=== PATIENT | male | born 1970 | race Caucasian/White ===

== ENCOUNTER 2016-12-15 17:12 | Outpatient (CLI) ==
[2015-07-21 17:27] VITALS: BMI 29.1
[2016-12-15 17:22] LABS: BILIRUBIN,URINE Negative (NEGATIVE); KETONES,URINE Negative (NEGATIVE); LEUKOCYTE ESTERASE ,URINE Negative (NEGATIVE); NITRITE,URINE Negative (NEGATIVE); PH,URINE 6.5 (5-9); PROTEIN,URINE Negative (NEGATIVE); URINE, BLOOD Negative (NEGATIVE)
[2016-12-15 17:25] LABS: BASOPHILS % (AUTO) 0.1 % (0.0-3.0); HEMOGLOBIN 14.7 g/dl (14.0-18.0); IMMATURE GRANULOCYTE % (AUTO) 0.7 % (0.0-5.0); LYMPHOCYTES % (AUTO) 5.8 (10.0-50.0); MEAN CORPUSCULAR HEMOGLOBIN 29.9 pg (27.0-31.0); MEAN CORPUSCULAR VOLUME 85.5 fl (80.0-94.0); MONOCYTES # (AUTO) 0.9 K/uL (0.4-2.0); MONOCYTES % (AUTO) 5.3 (0-10); NEUTROPHILS # (AUTO) 14.7 K/ul (2.0-6.9); NEUTROPHILS % (AUTO) 88.1; PLATELET COUNT 304 10^3/uL (140-440); RED BLOOD COUNT 4.91 10^6/ul (4.70-6.10); WHITE BLOOD COUNT 16.66 K/ul (4.2-10.2)
[2016-12-15 18:03] LABS: ALBUMIN/GLOBULIN RATIO 1.14; ANION GAP 14.3; BILIRUBIN,TOTAL 0.38 mg/dL (0.00-1.20); BUN/CREATININE RATIO 25.28; CALCIUM 9.3 mg/dL (8.2-10.2); CHOL/HDL RATIO 4.5 (4.5-6.4); CREATININE 0.87 mg/dL (0.60-1.10); POTASSIUM 4.3 mmol/L (3.5-5.1); TOTAL PROTEIN 7.5 g/dL (6.4-8.2)
[2016-12-15 18:58] LABS: ADD URINE MICROSCOPIC NO
== END 2016-12-15 17:13 | disposition home or self-care (01) ==
LOC: LAB 17:12
PROVIDERS: ATTEND General Practice
DX: E88.81 Metabolic syndrome and other insulin resistance (principal); R53.83 Other fatigue; R68.82 Decreased libido; E66.9 Obesity, unspecified; Z79.899 Other long term (current) drug therapy
CPT/HCPCS: 36415; 80053; 80061; 81001; 83036; 84402; 84443; 85025

== ENCOUNTER 2017-01-26 14:22 | Outpatient (CLI) ==
[2015-07-21 17:27] VITALS: BMI 29.1
[2017-01-27 07:30] LABS: TESTOSTERONE 485 ng/dL (348-1197)
[2017-01-31 07:44] LABS: FREE TESTOSTERONE 5.8 pg/mL (6.8-21.5)
== END 2017-01-26 14:23 | disposition home or self-care (01) ==
LOC: LAB 14:22
PROVIDERS: ATTEND General Practice
DX: F52.0 Hypoactive sexual desire disorder (principal); R53.83 Other fatigue
CPT/HCPCS: 36415; 84402; 84403

== ENCOUNTER 2017-03-02 16:29 | Outpatient (CLI) ==
[2015-07-21 17:27] VITALS: BMI 29.1
[2017-03-04 10:28] LABS: % FREE PROSTATE SPECIFIC AG 41.7 % (.); PROSTATE SPECIFIC AG, FREE 0.25 ng/mL
== END 2017-03-02 16:30 | disposition home or self-care (01) ==
LOC: LAB 16:29
PROVIDERS: ATTEND General Practice
DX: N40.0 Benign prostatic hyperplasia without lower urinary tract symptoms (principal)
CPT/HCPCS: 36415; 84154

== ENCOUNTER 2017-04-04 16:24 | Outpatient (CLI) ==
[2015-07-21 17:27] VITALS: BMI 29.1
[2017-04-06 07:43] LABS: TESTOSTERONE 1204 ng/dL (348-1197)
== END 2017-04-04 16:25 | disposition home or self-care (01) ==
LOC: LAB 16:24
PROVIDERS: ATTEND General Practice
DX: F52.0 Hypoactive sexual desire disorder (principal)
CPT/HCPCS: 36415; 84403

== ENCOUNTER 2017-04-18 11:08 | Outpatient (CLI) ==
[2015-07-21 17:27] VITALS: BMI 29.1
[2017-04-19 10:04] LABS: TESTOSTERONE 251 ng/dL (348-1197)
== END 2017-04-18 11:09 | disposition home or self-care (01) ==
LOC: LAB 11:08
PROVIDERS: ATTEND General Practice
DX: F52.0 Hypoactive sexual desire disorder (principal)
CPT/HCPCS: 36415; 84403

== ENCOUNTER 2017-05-03 16:56 | Outpatient (CLI) ==
[2015-07-21 17:27] VITALS: BMI 29.1
[2017-05-05 10:44] LABS: TESTOSTERONE 338 ng/dL (264-916)
== END 2017-05-03 16:57 | disposition home or self-care (01) ==
LOC: LAB 16:56
PROVIDERS: ATTEND General Practice
DX: F52.0 Hypoactive sexual desire disorder (principal)
CPT/HCPCS: 36415; 84403

== ENCOUNTER 2017-08-09 08:18 | Outpatient (CLI) ==
[2015-07-21 17:27] VITALS: BMI 29.1
[2017-08-10 06:12] LABS: TESTOSTERONE 542 ng/dL (264-916)
== END 2017-08-09 08:19 | disposition home or self-care (01) ==
LOC: LAB 08:18
PROVIDERS: ATTEND General Practice
DX: F52.0 Hypoactive sexual desire disorder (principal)
CPT/HCPCS: 36415; 84403

== ENCOUNTER 2017-10-04 12:49 | Outpatient (CLI) ==
[2015-07-21 17:27] VITALS: BMI 29.1
[2017-10-05 06:15] LABS: TESTOSTERONE 573 ng/dL (264-916)
== END 2017-10-04 12:50 | disposition home or self-care (01) ==
LOC: LAB 12:49
PROVIDERS: ATTEND General Practice
DX: Z51.81 Encounter for therapeutic drug level monitoring (principal); F52.0 Hypoactive sexual desire disorder; Z79.899 Other long term (current) drug therapy; Z12.5 Encounter for screening for malignant neoplasm of prostate
CPT/HCPCS: 36415; 84403

== ENCOUNTER 2018-01-18 11:49 | Outpatient (CLI) ==
[2015-07-21 17:27] VITALS: BMI 29.1
== END 2018-01-18 11:50 | disposition home or self-care (01) ==
LOC: FCC-LAB 11:49
PROVIDERS: ATTEND General Practice
DX: F52.0 Hypoactive sexual desire disorder (principal); G47.00 Insomnia, unspecified; Z79.899 Other long term (current) drug therapy
CPT/HCPCS: 36415; 80053; 80061; 81001; 84403; 85025

== ENCOUNTER 2018-12-13 11:30 | Outpatient (CLI) ==
[2015-07-21 17:27] VITALS: BMI 29.1
--- NOTE | 2018-12-13 11:56 | DI ---
Exam: Three views of the left shoulder. Comparison: None available. Reason for exam: Pain in left shoulder. FINDINGS: No acute fracture or malalignment. The humeral head articulates to the bony glenoid. The scapular Y-view is unremarkable. The clavicle is intact. Impression: No acute fracture or malalignment is seen in the left shoulder.
== END 2018-12-13 11:31 | disposition home or self-care (01) ==
LOC: RAD 11:30
PROVIDERS: ATTEND General Practice
DX: M25.512 Pain in left shoulder (principal)

== ENCOUNTER 2018-12-13 12:38 | Outpatient (CLI) ==
[2015-07-21 17:27] VITALS: BMI 29.1
== END 2018-12-13 12:39 | disposition home or self-care (01) ==
LOC: RHC-LAB 12:38
PROVIDERS: ATTEND General Practice
DX: M25.512 Pain in left shoulder (principal); E66.9 Obesity, unspecified
CPT/HCPCS: 36415; 80053; 80061; 81001; 82550; 82553; 84403; 84484; 85025; 85651; 86140

== ENCOUNTER 2018-12-18 16:14 | Outpatient (CLI) ==
[2015-07-21 17:27] VITALS: BMI 29.1
== END 2018-12-18 16:15 | disposition home or self-care (01) ==
LOC: RHC-LAB 16:14
PROVIDERS: ATTEND General Practice
DX: Z12.5 Encounter for screening for malignant neoplasm of prostate (principal)
CPT/HCPCS: 36415

== ENCOUNTER 2019-01-19 13:17 | Outpatient (CLI) ==
[2015-07-21 17:27] VITALS: BMI 29.1
== END 2019-01-19 13:18 | disposition home or self-care (01) ==
LOC: RHC-LAB 13:17
PROVIDERS: ATTEND General Practice
DX: M75.22 Bicipital tendinitis, left shoulder (principal)
CPT/HCPCS: 36415; 80053; 80061; 81001; 84403; 85025

== ENCOUNTER 2019-08-06 14:02 | Inpatient (IN) ==
[2019-08-06 12:44] VITALS: BMI 29.2
--- NOTE | 2019-08-06 13:40 | DI ---
EXAM: Two views of the chest. History: Short of breath Comparison: Chest radiograph 05/21/2014 Findings: Heart size is normal. No focal consolidation. No appreciable pleural fluid and no pneumo thorax. No acute osseous abnormalities. Impression: No acute cardiopulmonary process
[~2019-08-06 14:02] MED LIST: ATROPINE SULFATE PFS IVP PRN; DEXTROSE 5%-1/2NS IV SOLUTION 1,000 ML IV SCH; NITROSTAT SL PRN; TYLENOL PO PRN; VISTARIL INJ IM PRN
[2019-08-06] MEDS: CARAFATE PO SCH ×3 (15:16→20:15)
[2019-08-06] MEDS: PROTONIX PO SCH ×2 (15:16→19:43)
[2019-08-06] MEDS ORDERED: ULTRAM PO PRN (15:21)
[2019-08-06] MEDS: LEVAQUIN 500 MG/100 ML D5W 500 MG/100 ML BAG IV SCH (20:17)
[2019-08-06] MEDS ORDERED: MELATONIN PYRIDOXINE HCL PO SCH (21:00)
[2019-08-07] MEDS: CARAFATE PO SCH ×4 (05:30→21:06)
[2019-08-07] MEDS: PROTONIX PO SCH ×2 (05:30→16:51)
[2019-08-07] MEDS ORDERED: ASPIRIN EC PO SCH (08:00)
--- NOTE | 2019-08-07 08:43 | PCM.PROG ---
Attending Provider: ATTENDING PROVIDER: Dr. REX WILLIAMSON This patient is seen with Riddhi Garcia, Nurse Practitioner. DATE OF SERVICE: 08/07/19 SUBJECTIVE: This 49 year old /WHITE M was hospitalized 08/06/19. The patient is lying in bed resting comfortably. He had 4 units of PRBC's. Pallor improved. Today no shortness of breath at rest. The patient admits to taking Goody's powder up to 3 times daily with occasional Duexis. In the past, he has had abdominal pain off and on with self-medication of Pepto-Bismol. Also, has history of heavy nosebleeds over the past couple of weeks. REVIEW OF SYSTEMS: CONSTITUTIONAL: Weakness. No night sweats. No malaise, lethargy. No fever or chills. Pallor positive. HEENT: Eyes: No visual changes. No eye pain. No eye discharge. ENT: No runny nose. No epistaxis. No sinus pain. No odynophagia. No congestion. RESPIRATORY: No cough, no congestion. No hemoptysis. Positive for shortness of breath. CARDIOVASCULAR: No angina symptoms. No CHF symptoms. No atypical chest pain for CAD. No palpitations. No orthopnea.. GASTROINTESTINAL: No abdominal pain. No nausea or vomiting. No diarrhea or constipation. No hematemesis. No hematochezia. GENITOURINARY: No urgency. No frequency. No dysuria. No hematuria. No obstructive symptoms. No discharge. No pain. No significant abnormal bleeding. MUSCULOSKELETAL: No musculoskeletal pain; no joint swelling. NEUROLOGICAL: Awake, alert, oriented to time, place and person. No headache. No neck pain. No syncope. No seizures. No dizziness. PSYCHIATRIC: Not anxious. No depression. No suicidal thoughts. No homicidal thoughts. SKIN: No rash. No lesions. No wounds. ENDOCRINE: No unexplained weight loss. No weight gain. HEMATOLOGIC/LYMPHATIC: No anemia. No purpura. No petechiae. No prolonged or excessive bleeding. No palpable lymph nodes. PHYSICAL EXAMINATION: GENERAL: The patient is awake, alert and oriented, lying/sitting in bed in no distress. Pallor improved. VITAL SIGNS: Temperature 98.2 F, Pulse 68, Respiratory Rate 18, BP 124/63, Pulse Ox 99% HEENT: Head normocephalic, atraumatic. Eyes: Extraocular muscles are intact. Pupils are equal, round and reactive to light and accommodation. Ears: No lesions. Nose appeared normal. Throat: No exudate or erythema. NECK: Supple. No JVD, no carotid bruit. No lymphadenopathy or thyromegaly. LUNGS: Clear to auscultation. Percussion note normal. Chest symmetrical. HEART: S1, S2, no S3. No murmurs. No cyanosis or clubbing. No ascites. Pulses: Dorsalis pedis and posterior tibial pulses +1 to +2 both sides. ABDOMEN: Soft. Non-tender. Bowel sounds active. No CVA tenderness. No mass f elt. EXTREMITIES: No edema. Full range of motion of all extremities, equal. NEUROLOGIC: No focal deficit. Cranial nerves II through XII are grossly intact. No headache, no double vision or headache. SKIN: Not dry. Intact. Turgor-normal. LYMPHATIC: No palpable lymph nodes/no lymphedema. MUSCULOSKELETAL: Normal joints with no swelling. Muscle tone is normal. LAB REVIEW: 08/07/19 05:28 08/07/19 05:28 08/07/19 05:28: Sodium 136.2, Potassium 4.72, Chloride 102.8, Carbon Dioxide 29 .5, Anion Gap 8.62, BUN 19.9, Creatinine 1.02, Estimated GFR (MDRD) 78.00, BUN/Creatinine Ratio 19.50, Glucose 92.8, Calcium 8.16 L, Total Bilirubin 0.61, AST 43.4, ALT 30.7, Alkaline Phosphatase 55.8, Total Protein 6.36, Albumin 3.48 L, Globulin 2.88, Albumin/Globulin Ratio 1.20 08/07/19 05:28: WBC 9.59, RBC 3.20 L, Hgb 8.0 L, Hct 25.6 L, MCV 80.0, MCH 25.0 L, MCHC 31.3 L, RDW Coeff of Karina 16.4 H, Plt Count 460 H, Immature Gran % (Auto) 1.4, Neut % (Auto) 60.9, Lymph % (Auto) 22.1, [place] % (Auto) 11.6 H, Eos % (Auto) 3.0, Baso % (Auto) 1.0, Immature Gran # (Auto) 0.1, Neut # (Auto) 5.8, Lymph # (Auto) 2.1, [place] # (Auto) 1.1, Eos # (Auto) 0.3, Baso # (Auto) 0.1 08/06/19 21:40: Hgb 6.1 L, Hct 20.3 L 08/06/19 20:44: Total Creatine Kinase 67.1, Troponin I < 0.012 08/06/19 13:32: Reticulocyte % (Auto) 3.59, Absolute Retic 0.0732, Retic Hgb Equ ivalent 16.3 08/06/19 13:32: Hgb 4.4 L*, Hct 15.6 L* 08/06/19 13:32: Blood Type O POSITIVE, Antibody Screen Negative, Crossmatch (AHG) See Detail 08/06/19 13:30: Urine Color Yellow, Urine Clarity Clear, Urine pH 6.0, Ur Speci fic [place] 1.020, Urine Protein Negative, Urine Glucose (UA) Negative, Urine Ketones Negative, Urine Blood Negative, Urine Nitrite Negative, Urine Bilirubin Negative, Urine Urobilinogen 0.2, Ur Leukocyte Esterase Negative 08/06/19 12:37: Transferrin 519 H 08/06/19 12:37: Iron 19.4 L, TIBC 475, % Saturation 4, Vitamin B12 858 08/06/19 12:37: Ferritin 5.42 L, Folate 12.00 08/06/19 12:37: Blood Type O POSITIVE 08/06/19 12:37: Sodium 137.2, Potassium 4.03, Chloride 100.4, Carbon Dioxide 27.3, Anion Gap 13.53, BUN 23.7 H, Creatinine 1.09, Estimated GFR (MDRD) 72.00, BUN/Creatinine Ratio 21.74, Glucose 115.5 H, Calcium 8.46, Total Bilirubin 0.17 L, AST 43.6, ALT 28.5, Alkaline Phosphatase 54.9, Total Creatine Kinase 86.0, Troponin I < 0.012, Total Protein 6.64, Albumin 3.69, Globulin 2.95, Albumin/Globulin Ratio 1.25, TSH 1.260 08/06/19 12:37: WBC 8.31, RBC 1.95 L, Hgb 4.2 L*, Hct 15.0 L*, MCV 76.9 L, MCH 21.5 L, MCHC 28.0 L, RDW Coeff of Kairna 17.9 H, Plt Count 490 H, Immature Gran % (Auto) 0.5, Neut % (Auto) 73.7, Lymph % (Auto) 15.8, [place] % (Auto) 7.9, Eos % (Auto) 1.6, Baso % (Auto) 0.5, Immature Gran # (Auto) 0.0, Neut # (Auto) 6.1, Lymph # (Auto) 1.3, [place] # (Auto) 0.7, Eos # (Auto) 0.1, Baso # (Auto) 0.0, Hypochromasia 1+, Anisocytosis Not present, Microcytosis 1+ 08/06/19 12:37: ESR 44 H ASSESSMENT: Please see below. 1. Anemia likely peptic ulcer disease secondary to NSAID use. 2. Shortness of breath. PLAN: 1. Xanax 0.25 mg p.o. b.i.d. p.r.n. 2. Continue Protonix and Carafate. 3. Iron 325 mg p.o. b.i.d. 4. CT scan of abdomen and pelvis with and without this afternoon. Plan and coordination of the patient's care discussed in the presence of Rail Car Painter/Sandblaster and nurse. CONDITION: Stable SCRIBED BY: Jose Alfredo YOU scribed while in presence of service performed by Dr. Williamson/Riddhi Garcia APRN on 08/07/19 ([id number])
[2019-08-07] MEDS: LEVAQUIN 500 MG/100 ML D5W 500 MG/100 ML BAG IV SCH (09:05)
[2019-08-07] MEDS: FERROUS SULFATE PO SCH ×2 (09:05→21:06)
[2019-08-07] MEDS: XANAX PO PRN ×2 (09:05→21:06)
--- NOTE | 2019-08-07 13:13 | CT ---
EXAM: CT of the abdomen pelvis with and without contrast History: Anemia. Weakness and abdominal pain Comparison: CT abdomen pelvis 07/24/2015 Technique: Multiplanar CT images through the abdomen pelvis were obtained with and without the admin istration of IV contrast Findings: Lung bases are free of consolidation. Calcified granulomas are seen within the thorax. N o acute osseous abnormalities. No renal stones and no hydronephrosis. No ureteral calculi. No gallstones identified by CT. No clinton er or splenic lesions. No abdominal aortic aneurysm. Pancreas is within normal limits. Adrenal gla nds are normal. There are no renal masses. The appendix is not dilated or inflamed. No free air an d no ascites. No bladder wall thickening. Prostate is not enlarged. No perirectal inflammation. C olonic diverticulosis. No pathologically enlarged lymph nodes. No inflammatory stranding. Impression: 1. No acute intra-abdominal or pelvic process. 2. No malignant findings. 3. Colonic diverticulosis
[2019-08-07] MEDS ORDERED: MELATONIN PYRIDOXINE HCL PO SCH (21:00)
[2019-08-08] MEDS: CARAFATE PO SCH ×2 (05:33→12:03)
[2019-08-08] MEDS: PROTONIX PO SCH (05:34)
[2019-08-08 05:40] VITALS: BP 123/62; TEMP 98.1
[2019-08-08] MEDS: FERROUS SULFATE PO SCH (08:38)
[2019-08-08] MEDS: LEVAQUIN 500 MG/100 ML D5W 500 MG/100 ML BAG IV SCH (08:38)
--- NOTE | 2019-08-08 11:58 | HP ---
DATE OF SERVICE: 08/06/19 HISTORY OF PRESENT ILLNESS: This 49-year-old White/ male presented with complaint of vomiting on Tuesday. He started Levaquin on . He thought he had decreased output with slight burning. He has palpitations with chest tightness off and on times 6 days. He has mild dizziness. He is short of breath on minimal exertion. He complains of fatigue. PAST MEDICAL HISTORY: Hypogonadism PAST SURGICAL HISTORY: Right elbow surgery 1974 Umbilical hernia 2006 REVIEW OF SYSTEMS: CONSTITUTIONAL: Fever and fatigue. HEENT: No sinus drainage, no sore throat. RESPIRATORY: No cough, no congestion. CARDIOVASCULAR: Positive for shortness of breath. Atypical chest pain for coronary artery disease. No angina, CHF symptoms or palpitations. GASTROINTESTINAL: No melena or abdominal pain. No GERD. GENITOURINARY: No hematuria, no prostatism, no polyuria. GASOLINE FINISHER: Dizziness with change in position. No blackout, no headache, no double vision. MUSCULOSKELETAL: No osteoarthritis pain, no joint swelling. ENDOCRINE: No weight loss, no weight gain. SKIN: Not dry, no rash. PSYCHIATRIC: The patient is anxious. No depression, no suicidal thoughts, no homicidal thoughts. SOCIAL HISTORY: Smoking history - one-half pack per day for 10 years, quit in 1991, 26 years ago. . . Alcohol - Occasionally twice a year. Two children. Occupation - [employer] [place], [place]. FAMILY HISTORY: Father is . Mother is living. Five brothers. One sister. MEDICATIONS: Goody's powder p.r.n. Duexis 800 mg daily Melatonin one each p.o. bedtime 03/08/19 Phentermine 37.5 mg 04/23/19 Z-pack 250, Valium 2 mg b.i.d p.r.n. (dizzy) Antivert 25 mg t.i.d. p.r.n. Levaquin 500 mg daily Melatonin 10 mg three at h.s. ALLERGIES: NKDA (Will never take narcotics) PHYSICAL EXAMINATION: V/S: Pulse 94, BP 152/80, temperature 99.5, 02 sat 100%. Weight 200.6 lbs, height 5'9". GENERAL APPEARANCE: Oriented times three. HEENT: Normal. NECK: No JVP, no bruits. RESPIRATORY: Lungs are clear. CARDIOVASCULAR: S1, S2, no S3, no murmur. No cyanosis, clubbing. No ascites. GI/ABDOMEN: No tenderness. Bowel sounds are active. EXTREMITIES: edema, pulses +1, equal. GASOLINE FINISHER: Deep tendon reflexes, sensory, motor and gait all normal. RECTAL/PROSTATE: Advised now within a year colonoscopy and patient stated he will think about it. ASSESSMENT: 1. FEVER/PROSTATITIS ??/VIRAL 2. SHORTNESS OF BREATH/CHEST TIGHTNESS 3. PALPITATIONS 4. DIZZINESS 5. LEFT KNEE OSTEOARTHRITIS 6. HYPOGONADISM 7. BMI 29.6 8. LEFT BICEP TENDONITIS The patient was unable to work from the past and was going to be off the rest of the week. PLAN: 1. Admit observation. 2. Routine telemetry orders. 3. IV Levaquin 500 mg today and q.a.m. 4. UA with C & S 5. TSH/Sed rate 6. Echocardiogram 7. Stress Echo 8. Regular diet 9. 1000 cc D5 1/2 NS 12 hourly 10. Admit EDUCATION CARRIED OUT ABOUT: Diabetes mellitus and its complications, hypertension and its complications, CAD and its risk factors. Advised yearly ophthalmology examinations. Advised colonoscopy within one year. TIME SPENT: More than 70 minutes. MTDD
--- NOTE | 2019-08-08 13:42 | DS ---
DATE OF SERVICE: 08/08/19 FINAL DIAGNOSIS: 1. Severe anemia, Microcytic hyperchromic blood less from nonsteroidal anti- inflammatory 2. Labile hypertension 3. LVH by Echo 4. BMI 29. 5. Hypogonadism with history of low testosterone level DISCHARGE INSTRUCTIONS: Discharge home. Strongly advised to discontinue any Nonsteroidal anti- inflammatory likely Goody's and Duexis. The patient is to be seen on Tuesday for followup in the office. The patient is to see machine assembler supervisor, Dr. Kelly and Checker Loader Dr. Sandhu for evaluation of Microcytic hyperchromic anemia with hgb of 4.4 with hct 16 on admission. MEDICATIONS AT DISCHARGE: Ferrous sulfate 325 PO twice a day Carafate 1 gram QID for 10 days after that will discontinue that Protonix 40mg BID for 10 days after one daily DISCONTINUED MEDICATIONS: DO NOT TAKE GOODY'S POWDER DO NOT TAKE DUEXIS DIET INSTRUCTIONS: Regular as tolerated ACTIVITY: Resume as tolerated SMOKING: Former smoker DISEASE SPECIFIC EDUCATION: Severe Anemia Appointments Medications NSAIDS HOSPITAL COURSE: Juan Garcia was hospitalized through the office with complaint of being short of breath with minimal exertion with chest tightness and palpitation. Further workup revealed that patient had severe anemia with hgb of 4.4. The patient was given 2-3 units of packed red cells. The patient at the time of discharge had hgb of 8.6 with hct 27. His creatinine is 1.1, BUN 19. He told quite a lot Goody's and Duexis for several months prior to hospitalization. The could have caused his GI blood loss. He did see any black stool because off and on his stomach used to be upset and he used to take Kaopectate that made his stool black. The patient strongly advised to avoid nonsteroidal anti- inflammatory from now. The patient is feeling 100% better now. He is up and about with no shortness of breath. His echo showed normal LV contractility, borderline LVH with enlarged LA cavity. He was explained about these findings. Blood pressure has been labile with high reading into 150's at times systolic. Prior to discharge the patient is going to have PSA and lipid profile. The patient is not to return to work until released. CONDITION: Stable TIME SPENT: More than 60 minutes. [facility]
--- NOTE | 2019-08-08 14:32 | PN ---
DATE OF SERVICE: 08/07/19 SUBJECTIVE: The patient was seen and examined with the nurse practitioner. The patient's hemoglobin was 8 with hematocrit of 24. No evidence of active GI bleed. He is feeling a lot better. PHYSICAL EXAMINATION: HEENT: Head normocephalic, atraumatic. Eyes: Extraocular muscles are intact. Pupils are equal, round and reactive to light and accommodation. Ears: No lesions. Nose appeared normal. Throat: No exudate or erythema. NECK: Supple. No JVD, no carotid bruit. No lymphadenopathy or thyromegaly. LUNGS: Clear to auscultation. Percussion note normal. Chest symmetrical. HEART: S1, S2, no S3. No murmurs. No cyanosis or clubbing. No ascites. Pulses: Dorsalis pedis and posterior tibial pulses +1 to +2 bilaterally. ABDOMEN: Soft. Nontender. Bowel sounds active. No CVA tenderness. No mass felt. EXTREMITIES: No edema. Full range of motion of all extremities, equal. NEUROLOGIC: No focal deficit. Cranial nerves II through XII are grossly intact. No headache, no double vision or headache. SKIN: Not dry. Intact. Turgor - normal. LYMPHATIC: No palpable lymph nodes/no lymphedema. MUSCULOSKELETAL: Normal joints with no swelling. Muscle tone is normal. ASSESSMENT: 1. The patient does not have any symptoms of CHF. The patient is going to undergo CT scan of the abdomen. PLAN: 1. Strongly advised not to take any nonsteroidal antiinflammatory. 2. Discontinue Duexis and Goody's which includes aspirin mixture with something else. CONDITION: Stabilizing. TIME SPENT: More than 30 minutes. Plan and coordination of the patient's care discussed in the presence of nurse. SARABJIT
--- NOTE | 2019-08-09 09:01 | PN ---
08/06/19: Level 5 08/07/19: Extensive 08/08/19: D as in discharge MTDD
--- NOTE | 2019-08-09 09:01 | PN ---
%.DATE OF SERVICE: 08/08/19 DISCHARGE NOTE SUBJECTIVE: 49 year old white male hospitalized with severe anemia with hgb of 4.4. The patient is feeling a lot better. The patient has been taking Testosterone from his friend, originally was given by Dr. Jacobs. Strongly advised to get a urologist. Side affects of testosterone including cardiovascular effects all that discussed with the patient. No nonsteroidal anti-inflammatory to be taken on for lifetime, discussed. REVIEW OF SYSTEMS: CONSTITUTIONAL: No night sweats. No fatigue, malaise, lethargy. No fever or chills. HEENT: Eyes: No visual changes. No eye pain. No eye discharge. ENT: No runny nose. No epistaxis. No sinus pain. No sore throat. No odynophagia. No congestion. RESPIRATORY: No cough, no congestion. No hemoptysis. No shortness of breath. CARDIOVASCULAR: No angina symptoms. No CHF symptoms. No atypical chest pain for CAD. No palpitations. No PND. No orthopnea. GASTROINTESTINAL: No abdominal pain. No nausea or vomiting. No diarrhea or constipation. No hematemesis. No hematochezia. GENITOURINARY: No urgency. No frequency. No dysuria. No hematuria. No obstructive symptoms. No discharge. No pain. No significant abnormal bleeding. MUSCULOSKELETAL: No musculoskeletal pain; no joint swelling. NEUROLOGICAL: No headache. No neck pain. No syncope. No seizures. No dizziness. PSYCHIATRIC: Not anxious. No depression. No suicidal thoughts. No homicidal thoughts. SKIN: No rash. No lesions. No wounds. ENDOCRINE: No unexplained weight loss. No weight gain. HEMATOLOGIC/LYMPHATIC: No anemia. No purpura. No petechiae. No prolonged or excessive bleeding. No palpable lymph nodes. PHYSICAL EXAMINATION: GENERAL: The patient is oriented to time, place and person. VITAL SIGNS: Temperature 98, pulse 63, respiratory rate 18, blood pressure 123/62 and pulse ox 99% HEENT: Head normocephalic, atraumatic. Eyes: Extraocular muscles are intact. Pupils are equal, round and reactive to light and accommodation. Ears: No lesions. Nose appeared normal. Throat: No exudate or erythema. NECK: Supple. No JVD, no carotid bruit. No lymphadenopathy or thyromegaly. LUNGS: Decreased breath sounds but clear to auscultation. Percussion note normal. Chest symmetrical. HEART: S1, S2, no S3. No murmurs. No cyanosis or clubbing. No ascites. Pulses: Dorsalis pedis and posterior tibial pulses +1 to +2 bilaterally. ABDOMEN: Soft. Nontender. Bowel sounds active. No CVA tenderness. No mass felt. EXTREMITIES: No edema. Full range of motion of all extremities, equal. NEUROLOGIC: No focal deficit. Cranial nerves II through XII are grossly intact. No headache, no double vision or headache. SKIN: Not dry. Intact. Turgor - normal. LYMPHATIC: No palpable lymph nodes/no lymphedema. MUSCULOSKELETAL: Normal joints with no swelling. Muscle tone is normal. ASSESSMENT: 1. Severe anemia likely from GI blood loss from taking Goody's which contains aspirin and duexis which is combination of ibuprofen and Famotidine. PLAN: 1. The patient is going to be discharged on Proton pump inhibitor and Carafate. 2. Also he is going to see superintendent pier and GI specialist. 3. Not to return to work until released. He is going to be seen on Tuesday. 4. The patient had an echocardiogram done which showed LVH, borderline enlargement of the left atrial cavity otherwise valves are normal. Left ventricular size is 5.4cm. All discussed with the patient. TIME SPENT: More than 30 minutes. Plan and coordination of the patient's care discussed in the presence of nurse. SARABJIT
--- NOTE | 2019-08-09 09:42 | ECHO2D ---
Date of Exam: 08/08/19 Ordering Physician: DR. REX WILLIAMSON Room #: SCU2 Reason for Echo: TACHYCARDIA, CHEST TIGHTNESS, SOB, SEVERE ANEMIA TOTAL Hb 4.4 M-Mode Normal Adult Results LV Dimensions Normal Adult Results AoV Opening excursions >1.6 >1.6 LVEDD-base- 3.5-5.8 5.4 Ao root dimensions 2.0-3.7 3.5 LVESD-base- 3.1-4.6 L. Atrium dimensions 1.9-3.8 4.3 Post. Wall thickness 0.8-1.1 1.2 IV septum (thickness) 0.7-1.2 1.2 Post. Wall excursion 0.72-1.3 NORMAL Septal motion NORMAL Systolic motion R. Ventricular cavity 1.5-2.0 NORMAL LVEF 60% 52% Paradoxical septal wall motion NORMAL 2-D : 2-D M Mode Echocardiogram was performed using apical four chamber and left parasternal long and short axis views. Mitral, tricuspid and aortic valves appear to be normal. Contractility of the left ventricle seems to be normal, so is the cavity size. ENLARGED LEFT ATRIAL CAVITY. Aortic root appears to be normal. There is no pericardial effusion. There is no thrombus noted in the left ventricle or left atrial cavity. No mitral valve prolapse noted. M-MODE: MV: NORMAL AV: NORMAL TV: NORMAL PV: CHAMBER SIZE: ENLARGED LEFT ATRIAL CAVITY WALL MOTION: NORMAL PERICARDIUM: NORMAL INTERPRETATION: 1. BORDERLINE LEFT VENTRICULAR HYPERTROPHY WITH ENLARGED LEFT ATRIAL CAVITY 2. NORMAL LEFT VENTRICULAR CONTRACTILITY 3. NORMAL VALVES MTDD
== END 2019-08-08 14:18 | disposition home or self-care (01) | DRG 812 ==
LOC: MEDSURG B → SCU 14:02
PROVIDERS: ADMIT Internal Medicine; ATTEND Internal Medicine
DX: R09.89 Other specified symptoms and signs involving the circulatory and respiratory systems; Z68.29 Body mass index [BMI] 29.0-29.9, adult; R50.9 Fever, unspecified; E29.1 Testicular hypofunction; R00.2 Palpitations; K92.2 Gastrointestinal hemorrhage, unspecified; R42 Dizziness and giddiness; R06.02 Shortness of breath; R53.83 Other fatigue; D64.9 Anemia, unspecified